=== PATIENT | male | born 1950 | race Caucasian/White ===

== ENCOUNTER 2021-02-09 09:18 | Emergency (ER) | payer MEDICARE ==
[~2021-02-09] VITALS: Ht 175.3 cm; Wt 177.0 kg
--- NOTE | 2021-02-09 09:58 | ED.ADGEN ---
Past Medical History Past Medical History: Cancer, Diabetes-Type II, Hypertension Additional Past Medical Histor: prostate CA Past Surgical History: Cholecystectomy, Knee Replacement Additional Past Surgical Histo: SHOULDER ,CARPEL TUNNEL,PROSTATE REMOVED R/O CANCER Smoking Status: Never Smoker Alcohol Use: None Drug Use: None General Adult EDM: Chief Complaint: HIP PAIN HPI: HPI: Patient is a 70 year old male coming in for 2 weeks of left hip and back pain. Patient states the pain radiates from his hip down the back of his leg. He believes it started after he was mowing the lawn a couple of weeks ago when turning a lot that he must have moved wrong. Denies any history of back problems. Denies any numbness, loss of bowel or bladder function. Patient states he has not any fevers but has had occasional night sweats and unintentional weight loss recently. Has a history of prostate cancer and is status post prostatectomy in 2011, there was no residual cancer found on follow- up. Review of Systems: Review of Systems: All other systems within normal limits except for as noted in the HPI Current Medications: Current Medications Medications (Trade) Dose Ordered Sig/Nilesh Start Time Stop Time Status Last Admin Dose Admin Fentanyl Citrate (Fentanyl 2ml Vial) 75 mcg 1X ONCE 02/09/21 10:30 02/09/21 10:33 DC 02/09/21 10:42 75 MCG Allergies: Allergies: Allergies Coded Allergies Type Severity Reaction Last Updated Verified No Known Drug Allergies 05/09/15 No Physical Exam: PE: Constitutional: Well developed, well nourished, no acute distress, non-toxic appearance. [] HENT: Normocephalic, atraumatic, bilateral external ears normal, nose normal. [] Eyes: PERRLA, conjunctiva normal, no discharge. [] Neck: No rigidity, supple, no stridor. [] Cardiovascular: Regular rate and rhythm, brisk cap refill [] Lungs & Thorax: Non labored symmetric respirations, no tachypnea or respiratory distress [] Abdomen: Soft, nondistended. Skin: Warm, dry, no erythema, no rash. [] Back: Unremarkable, no step-off or deformities, no's point spinal tenderness, that of supine right great Extremities: No deformities, range of motion grossly intact, no lower extremity edema [] Neurologic: Alert and oriented X 3, no focal deficits noted. [] Psychologic: Affect normal, judgement normal, mood normal. [] Current Patient Data: Labs: Laboratory Tests Test 02/09/21 10:27 White Blood Count 8.6 x10^3/uL (4.0-11.0) Red Blood Count 5.89 x10^6/uL (4.30-5.70) H Hemoglobin 16.4 g/dL (13.0-17.5) Hematocrit 47.6 % (39.0-53.0) Mean Corpuscular Volume 81 fL (79-100) Mean Corpuscular Hemoglobin 28 pg (25-35) Mean Corpuscular Hemoglobin Concent 34 g/dL (31-37) Red Cell Distribution Width 14.3 % (11.5-14.5) Platelet Count 257 x10^3/uL (140-400) Neutrophils (%) (Auto) 66 % (31-73) Lymphocytes (%) (Auto) 21 % (24-48) L Monocytes (%) (Auto) 9 % (0-9) Eosinophils (%) (Auto) 3 % (0-3) Basophils (%) (Auto) 1 % (0-3) Neutrophils # (Auto) 5.7 x10^3/uL (1.8-7.7) Lymphocytes # (Auto) 1.8 x10^3/uL (1.0-4.8) Monocytes # (Auto) 0.7 x10^3/uL (0.0-1.1) Eosinophils # (Auto) 0.3 x10^3/uL (0.0-0.7) Basophils # (Auto) 0.1 x10^3/uL (0.0-0.2) Sodium Level 139 mmol/L (136-145) Potassium Level 3.4 mmol/L (3.5-5.1) L Chloride Level 99 mmol/L (98-107) Carbon Dioxide Level 25 mmol/L (21-32) Anion Gap 15 (6-14) H Blood Urea Nitrogen 17 mg/dL (8-26) Creatinine 1.1 mg/dL (0.7-1.3) Estimated GFR (Cockcroft-Gault) 65.8 BUN/Creatinine Ratio 15 (6-20) Glucose Level 244 mg/dL (70-99) H Calcium Level 9.0 mg/dL (8.5-10.1) Total Bilirubin 1.1 mg/dL (0.2-1.0) H Aspartate Amino Transferase (AST) 36 U/L (15-37) Alanine Aminotransferase (ALT) 56 U/L (16-63) Alkaline Phosphatase 60 U/L (46-116) Total Protein 7.2 g/dL (6.4-8.2) Albumin 4.3 g/dL (3.4-5.0) Albumin/Globulin Ratio 1.5 (1.0-1.7) Laboratory Tests 02/09/21 10:27 Laboratory Tests 02/09/21 10:27 Vital Signs: Vital Signs Date Time Temp Pulse Resp B/P (MAP) Pulse Ox O2 Delivery O2 Flow Rate FiO2 02/09/21 10:42 16 98 Room Air 02/09/21 09:32 97.9 104 141/82 (101) 97.9 EKG: EKG: [] Heart Score: C/O Chest Pain: No Risk Factors: Risk Factors: DM, Current or recent (<one month) smoker, HTN, HLP, family history of CAD, obesity. Risk Scores: Score 0 - 3: 2.5% MACE over next 6 weeks - Discharge Home Score 4 - 6: 20.3% MACE over next 6 weeks - Admit for Clinical Observation Score 7 - 10: 72.7% MACE over next 6 weeks - Early Invasive Strategies Radiology/Procedures: Radiology/Procedures: EXAM: CT lumbar spine without IV contrast CLINICAL HISTORY:Reason: pain, h/o cancer and weight loss / Spl. Instructions: / History: COMPARISON: None available. TECHNIQUE: Helical CT was performed through the lumbar spine. Axial, coronal and sagittal reformatted images were generated. PQRS compliance statement - One or more of the following individualized dose reduction techniques were utilized for this study: 1. Automated exposure control 2. Adjustment of the mA and/or kV according to patient size 3. Use of iterative reconstruction technique FINDINGS: Vertebral body heights are preserved. Mild L2-3 disc height loss. Mild multile betty facet degenerative changes are seen. No spondylolisthesis. Endplate osteophytes are seen. Decreased bone mineral density. Small multilevel disc bulges result in mild to moderate central canal stenosis. Aortic calcifications are seen. No obvious retroperitoneal mass is noted. IMPRESSION: No acute fracture or subluxation. Degenerative changes at multiple levels. EXAM: CT pelvis without IV contrast DATE: 02/09/2021 10:23 AM COMPARISON: No prior INDICATION: Reason: pain, h/o cancer and weight loss / Spl. Instructions: / History: TECHNIQUE: CT of the pelvis was performed without IV contrast. Axial, coronal and sagittal reformatted images were generated. PQRS compliance statement - One or more of the following individualized dose reduction techniques were utilized for this study: 1. Automated exposure control 2. Adjustment of the mA and/or kV according to patient size 3. Use of iterative reconstruction technique FINDINGS: Degenerative changes of the hips bilaterally. There is joint space narrowing bilaterally, greater on the left with bilateral cystic change within the superior femoral heads. Marginal osteophytes at the acetabulum and femoral head/neck junction are more prominent on the left although bilateral. No acute fracture or dislocation. Small fat-containing periumbilical hernia is seen. Bladder is unremarkable. No small or large bowel dilatation. No bowel obstruction. Appendix is normal. Moderate colonic stool content. Aorta is normal in caliber with intermittent atherosclerotic calcifications. IMPRESSION: No acute fracture or dislocation. Severe bilateral hip joint degenerative changes, greater on the right. [] Course & Med Decision Making: Course & Med Decision Making Pertinent Labs and Imaging studies reviewed. (See chart for details) [] Dragon Disclaimer: Dragon Disclaimer: This electronic medical record was generated, in whole or in part, using a voice recognition dictation system. Departure Departure Impression: Primary Impression: Sciatica of left side Disposition: 01 HOME / SELF CARE / HOMELESS Condition: STABLE Referrals: IZZY FERNANDEZ M.D. (PCP) Patient Instructions: Sciatica with [facility]hab[facility] Scripts Hydrocodone Bit/Acetaminophen (HYDROCODONE-APAP 5-325 ) 1 Tab Tablet 1 TAB PO PRN Q6HRS PRN for PAIN for 5 Days, #15 TAB 0 Refills Prov: TRINIDAD PARSONS MD 02/09/21 TRINIDAD PARSONS MD February 09, 2021 09:58
[2021-02-09] MEDS ORDERED: fentaNYL PF VIAL 100 MCG/2 ML VIAL IVP ONE ×2 (10:30→12:15)
[2021-02-09 10:42] LABS: BASO # 0.1 x10^3/uL (0.0-0.2); BASO % 1 % (0-3); EOS # 0.3 x10^3/uL (0.0-0.7); EOS % 3 % (0-3); HEMATOCRIT 47.6 % (39.0-53.0); HEMOGLOBIN 16.4 g/dL (13.0-17.5); LYMPH # 1.8 x10^3/uL (1.0-4.8); LYMPH % 21 % (24-48); MEAN CORPUSCULAR HEMOGLOBIN 28 pg (25-35); MEAN CORPUSCULAR HGB CONC 34 g/dL (31-37); MEAN CORPUSCULAR VOLUME 81 fL (79-100); MONO # 0.7 x10^3/uL (0.0-1.1); MONO % 9 % (0-9); NEUT # 5.7 x10^3/uL (1.8-7.7); NEUT % 66 % (31-73); PLATELET COUNT 257 x10^3/uL (140-400); RED BLOOD COUNT 5.89 x10^6/uL (4.30-5.70); RED CELL DISTRIBUTION WIDTH 14.3 % (11.5-14.5); WHITE BLOOD COUNT 8.6 x10^3/uL (4.0-11.0)
--- NOTE | 2021-02-09 10:51 | RAD ---
EXAM: CT lumbar spine without IV contrast CLINICAL HISTORY:Reason: pain, h/o cancer and weight loss / Spl. Instructions: / History: COMPARISON: None available. TECHNIQUE: Helical CT was performed through the lumbar spine. Axial, coronal and sagittal reformatted images were generated. PQRS compliance statement - One or more of the following individualized dose reduction techniques wer e utilized for this study: 1. Automated exposure control 2. Adjustment of the mA and/or kV according to patient size 3. Use of iterative reconstruction technique FINDINGS: Vertebral body heights are preserved. Mild L2-3 disc height loss. Mild multilevel facet degenerative changes are seen. No spondylolisthesis. Endplate osteophytes are seen. Decreased bone mineral density . Small multilevel disc bulges result in mild to moderate central canal stenosis. Aortic calcifications are seen. No obvious retroperitoneal mass is noted. IMPRESSION: No acute fracture or subluxation. Degenerative changes at multiple levels. EXAM: CT pelvis without IV contrast DATE: 02/09/2021 10:23 AM COMPARISON: No prior INDICATION: Reason: pain, h/o cancer and weight loss / Spl. Instructions: / History: TECHNIQUE: CT of the pelvis was performed without IV contrast. Axial, coronal and sagittal reformatte d images were generated. PQRS compliance statement - One or more of the following individualized dose reduction techniques wer e utilized for this study: 1. Automated exposure control 2. Adjustment of the mA and/or kV according to patient size 3. Use of iterative reconstruction technique FINDINGS: Degenerative changes of the hips bilaterally. There is joint space narrowing bilaterally, greater on the left with bilateral cystic change within the superior femoral heads. Marginal osteophytes at the acetabulum and femoral head/neck junction are more prominent on the left although bilateral. No acute fracture or dislocation. Small fat-containing periumbilical hernia is seen. Bladder is unremarkable. No small or large bowel d ilatation. No bowel obstruction. Appendix is normal. Moderate colonic stool content. Aorta is normal in caliber with intermittent atherosclerotic calcifications. IMPRESSION: No acute fracture or dislocation. Severe bilateral hip joint degenerative changes, greater on the right. Electronically signed by: Armand Bonilla MD (02/09/2021 10:48 AM) [id number]
[2021-02-09 10:52] LABS: CREATININE 1.1 mg/dL (0.7-1.3); GFR 65.8; POTASSIUM 3.4 mmol/L (3.5-5.1)
[2021-02-09 10:59] LABS: ALBUMIN 4.3 g/dL (3.4-5.0); ALBUMIN/GLOBULIN RATIO 1.5 (1.0-1.7); TOTAL BILIRUBIN 1.1 mg/dL (0.2-1.0); TOTAL PROTEIN 7.2 g/dL (6.4-8.2)
[2021-02-09] MEDS ORDERED: HYDR-2761 PO (11:47)
[2021-02-09 12:06] VITALS: BP 131/75
== END 2021-02-09 12:11 | disposition home or self-care (01) ==
LOC: ER 09:18
DX: M54.42 Lumbago with sciatica, left side (principal); E11.9 Type 2 diabetes mellitus without complications; I10 Essential (primary) hypertension; Z90.49 Acquired absence of other specified parts of digestive tract
CPT/HCPCS: 36415; 72131; 72192; 80053; 85025; 96374; 96376; 99284; J3010; 99285-25

== ENCOUNTER 2021-02-26 14:16 | Emergency (ER) | payer MEDICARE ==
[~2021-02-26] VITALS: Ht 172.7 cm; Wt 82.7 kg
[~2021-02-26 14:16] MED LIST: HYDR-2761 PO
--- NOTE | 2021-02-26 15:47 | PHYS DOC ---
Past Medical History Past Medical History: Cancer, Diabetes-Type II, Hypertension Additional Past Medical Histor: prostate CA Past Surgical History: Cholecystectomy, Knee Replacement Additional Past Surgical Histo: SHOULDER ,CARPEL TUNNEL,PROSTATE REMOVED R/O CANCER Smoking Status: Never Smoker Alcohol Use: None Drug Use: None General Adult EDM: Chief Complaint: LOWER EXT PAIN HPI: HPI: Patient is a 70 year old male who presents with was here on February 07 for left hip pain with sharp shooting pain radiating down the leg and is back again today for the same thing. He states he was doing good with taking hydrocodone and naproxen. He states that the last time he had been mowing the lawn and thinks he turned the wrong way. He states this time he has not been doing anything. He did have CT scans done upon that time. He is rating his pain an 8 out of 10. He is still able to ambulate but is painful. He has a history of prostate cancer, diabetes, hypertension, cholecystectomy, knee replacement, shoulder pain, carpal tunnel surgery, prostatectomy. He denies numbness or tingling, focal weakness, loss of bowel bladder, back pain, abdominal pain, urinary symptoms, injury, fall. Review of Systems: Review of Systems: Constitutional: Denies fever or chills. [] Eyes: Denies change in visual acuity. [] HENT: Denies nasal congestion or sore throat. [] Respiratory: Denies cough or shortness of breath. [] Cardiovascular: Denies chest pain or edema. [] GI: Denies abdominal pain, nausea, vomiting, bloody stools or diarrhea. [] : Denies dysuria. [] Musculoskeletal: + Left lower back pain with sharp shooting pain going down left leg or joint pain. [] Integument: Denies rash. [] Neurologic: Denies headache, focal weakness or sensory changes. [] Endocrine: Denies polyuria or polydipsia. [] Lymphatic: Denies swollen glands. [] Psychiatric: Denies depression or anxiety. [] Heart Score: C/O Chest Pain: No Risk Factors: Risk Factors: DM, Current or recent (<one month) smoker, HTN, HLP, family history of CAD, obesity. Risk Scores: Score 0 - 3: 2.5% MACE over next 6 weeks - Discharge Home Score 4 - 6: 20.3% MACE over next 6 weeks - Admit for Clinical Observation Score 7 - 10: 72.7% MACE over next 6 weeks - Early Invasive Strategies Allergies: Allergies: Allergies Coded Allergies Type Severity Reaction Last Updated Verified No Known Drug Allergies 05/09/15 No Physical Exam: PE: Constitutional: Well developed, well nourished, no acute distress, non-toxic appearance. [] HENT: Normocephalic, atraumatic, bilateral external ears normal, oropharynx moist, no oral exudates, nose normal. [] Eyes: PERRLA, EOMI, conjunctiva normal, no discharge. [] Neck: Normal range of motion, no tenderness, supple, no stridor. [] Cardiovascular:Heart rate regular rhythm, no murmur [] Lungs & Thorax: Bilateral breath sounds clear to auscultation [] Abdomen: Bowel sounds normal, soft, no tenderness, no masses, no pulsatile masses. [] Skin: Warm, dry, no erythema, no rash. [] Back: No tenderness, no CVA tenderness. [] Extremities: No tenderness, no cyanosis, no clubbing, ROM intact, no edema. [] Neurologic: Alert and oriented X 3, normal motor function, normal sensory function, no focal deficits noted. [] Psychologic: Affect normal, judgement normal, mood normal. Normal physical exam [] Current Patient Data: Vital Signs: Vital Signs Date Time Temp Pulse Resp B/P (MAP) Pulse Ox O2 Delivery O2 Flow Rate FiO2 02/26/21 14:39 97.8 100 20 151/100 (117) 98 Room Air 97.8 EKG: EKG: [] Radiology/Procedures: Radiology/Procedures: [] Impression: CT lumbar and pelvic findings from February 09 visit FINDINGS: Vertebral body heights are preserved. Mild L2-3 disc height loss. Mild multilevel facet degenerative changes are seen. No spondylolisthesis. Endplate osteophytes are seen. Decreased bone mineral density. Small multilevel disc bulges result in mild to moderate central canal stenosis. MPRESSION: No acute fracture or dislocation. Severe bilateral hip joint degenerative changes, greater on the right. Course & Med Decision Making: Course & Med Decision Making Pertinent Labs and Imaging studies reviewed. (See chart for details) See HPI. Alert and oriented x4. Ambulatory with a steady gait. Speaks in full clear sentences. Skin pink warm and dry. No extremity or joint laxity, deformity or sensation loss. No peripheral edema. No saddle paresthesia. Patient is given a fentanyl IM shot and Decadron in the ED. He still has leftover hydrocodone. I can write him for some more naproxen. CT scan of the lumbar and pelvis showed severe hip degeneration and lumbar and sacral degenerative disc. He is moving all extremities. He can wiggle his toes. Patient to follow-up with his primary care doctor and I will also refer him to Dr. Casey. After medication given in the ED patient states his pain is gone. He is discharged home. [] Dragon Disclaimer: Dragon Disclaimer: This electronic medical record was generated, in whole or in part, using a voice recognition dictation system. Departure Departure Impression: Primary Impression: Sciatica of left side Disposition: HOME / SELF CARE / HOMELESS Condition: STABLE Referrals: IZZY FERNANDEZ M.D. (PCP) SIERRA CASEY MD, JOHN N MD Patient Instructions: Sciatica with Rehab[facility] Additional Instructions: Follow-up with your primary care physician. I have also referred you to 2 different doctors that can do steroid injections to help with the nerve pain. To need taking your hydrocodone as prescribed for pain. Use a heating pad. If you lose your bowel or bladder or lose use of a extremity you need to come to emergency room. Scripts Naproxen (NAPROXEN) 500 Mg Tablet 1 TAB PO BID for pain for 14 Days, #28 TAB 0 Refills Prov: YONATHAN GRADY APRN 02/26/21 YONATHAN GRADY APRN February 26, 2021 15:47
[2021-02-26] MEDS ORDERED: DEXAMETHASONE 4 MG TABLET PO ONE (16:00)
[2021-02-26] MEDS ORDERED: fentaNYL PF VIAL 100 MCG/2 ML VIAL IM ONE (16:00)
[2021-02-26] MEDS ORDERED: NAPR-514 PO (16:45)
[2021-02-26 17:06] VITALS: BP 138/71
== END 2021-02-26 17:40 | disposition home or self-care (01) ==
LOC: ER 14:16
DX: M54.42 Lumbago with sciatica, left side (principal); M25.552 Pain in left hip; E11.9 Type 2 diabetes mellitus without complications; I10 Essential (primary) hypertension; Z90.49 Acquired absence of other specified parts of digestive tract
CPT/HCPCS: 96372; 99283; J3010